=== PATIENT | female | born 1995 | race Caucasian/White ===

== ENCOUNTER → 2020-10-03 | Day surgery (SDC) | payer OTHER ==
[~2020-10-03] VITALS: Ht 167.6 cm; Wt 100.7 kg
[~2020-10-03] MED LIST: MOTRIN600 MG PO; VENTOLIN HFA IN18 GM INH; ZOLOFT50 MG PO
[2020-10-03 07:48] LABS: HCG (URINE) SCREEN NEGATIVE (NEGATIVE)
[2020-10-03 07:48] LABS: BASOPHIL 0.4 % (0-2); EOSINOPHIL 1.1 % (0-5); HCT 39.6 % (37.0-47.0); HGB 13.2 g/dl (12.5-16.0); LYMPHOCYTE 22.3 % (15-48); MCH 31.4 pg (25.0-31.0); MCHC 33.3 g/dL (32.0-36.0); MCV 94.3 fL (78.0-100.0); MONOCYTE 6.1 % (0-12); MPV 9.7 fL (6.0-9.5); NEUTROPHIL 69.8 % (41-80); NRBC 0; PLT 322 K/uL (150-400); RDW 13.9 % (11.5-14.0); WBC 10.6 K/uL (4.0-10.5)
== END | disposition home or self-care (01) ==
LOC: FAS 06:54
PROVIDERS: Oral & Maxillofacial Surgery
DX: K01.1 Impacted teeth (principal); K02.9 Dental caries, unspecified; K21.9 Gastro-esophageal reflux disease without esophagitis; F41.0 Panic disorder [episodic paroxysmal anxiety]; F17.200 Nicotine dependence, unspecified, uncomplicated
CPT/HCPCS: 36415; 84703; 85025; J1100; J1170; J2250; J2704; J3010; J7120